=== PATIENT | male | born 1995 | race Caucasian/White ===

== ENCOUNTER 2016-11-05 17:19 | Inpatient (IN) | payer SELFPAY ==
[2016-11-05] VITALS (15 sets, daily range): BP systolic 110–133; BP diastolic 55–91; PULSE 60–99; RESP 5–16; TEMP 98; O2SAT 94–100
[~2016-11-05] VITALS: Ht 165.1 cm; Wt 57.4 kg
[2016-11-05] MEDS ORDERED: ETOMIDATE 20 MG/10 ML VIAL ONE (17:57)
[2016-11-05] MEDS ORDERED: SUCCINYLCHOLINE CHLORIDE 200 MG/10 ML VIAL ONE (17:57)
[2016-11-05] MEDS ORDERED: ETOMIDATE 20 MG/10 ML VIAL IVP ONE (18:15)
[2016-11-05] MEDS ORDERED: SODIUM CHLORIDE 0.9% FLUSH 10 ML FLUSH IVF PRN (18:15)
[2016-11-05] MEDS ORDERED: SODIUM CHLOR 0.9% 1000 ML INJ 1,000 ML IV ONE (18:15)
[2016-11-05] MEDS ORDERED: SUCCINYLCHOLINE CHLORIDE 200 MG/10 ML VIAL IVP ONE (18:15)
[2016-11-05] MEDS ORDERED: SODIUM CHLORIDE 0.9% FLUSH 5 ML FLUSH IV FLUSH PRN (18:15)
[2016-11-05] MEDS ORDERED: PROPOFOL 1000 MG/100 ML INJ 100 ML IV PRN ×2 (18:15→21:30)
--- NOTE | 2016-11-05 18:20 | PD ---
HPI Chief Complaint: Altered Mental Status Time Seen by Provider: 17:54 Travel History International Travel<30 days: No Contact w/Intl Traveler<30days: No Traveled to known affect area: No History of Present Illness HPI This patient is brought in by paramedics. This patient's roommate called them when he was found to be altered. No further history available. There was suspicion of drug overdose but nothing confirmed. Patient when I walk in the ER room is almost completely apneic. Breathing 4per minute with saturation of 77% and good waveform. He is unresponsive. Cannot provide any history or review of systems. [facility] Past Medical History Medical History: Unable to Obtain Past Surgical History Surgical History: Unable to Obtain Social History Alcohol Use: No Tobacco Use: No Substance Use: Yes (unknown) Allergies-Medications (Allergen,Severity, Reaction): Coded Allergies: No Known Allergies (Unverified , 05/07/14) Reported Meds & Prescriptions Reported Meds & Active Scripts Active Active Prescriptions or Reported Medications Unobtainable Review of Systems ROS Limitations: Clinical Condition, Altered Mental Status, Unresponsive Physical Exam Narrative GENERAL: Well-nourished, well-developed patient with very poor respiratory effort and unresponsive. SKIN: Focused skin assessment reveals no rash and nodules. Skin is Warm and dry. HEAD: Atraumatic. Normocephalic. EYES: Pupils equal and round. No scleral icterus. No injection or drainage. ENT: No nasal bleeding or discharge. Mucous membranes pink and moist. NECK: Trachea midline. No JVD. CARDIOVASCULAR: Regular rate and rhythm. No murmur appreciated. RESPIRATORY: Extremely poor respiratory effort. Respiratory rate of 4. Almost apneic. GASTROINTESTINAL: Abdomen soft, non-tender, nondistended. Hepatic and splenic margins not palpable. MUSCULOSKELETAL: No obvious deformities. No clubbing. No cyanosis. No edema. NEUROLOGICAL: Unresponsive. No gag reflex. Nonverbal. Impossible to test motor strength or sensation. PSYCHIATRIC: Unable to test mood or affect. Insight and judgment are poor. Data Data Last Documented VS Vital Signs Date Time Temp Pulse Resp B/P (MAP) Pulse Ox O2 Delivery O2 Flow Rate FiO2 11/05/16 18:13 66 14 133/63 (86) 94 Ventilator 100 11/05/16 17:55 2.00 11/05/16 17:39 98.0 Orders Orders Etomidate Inj (Amidate Inj) (11/05/16 17:57) Succinylcholine Inj (Quelicin Inj) (11/05/16 17:57) Chest, Single Ap (11/05/16 18:05) Arterial Blood Gas (Abg) (11/05/16 18:05) Ecg Monitoring (11/05/16 18:05) Iv Access Insert/Monitor (11/05/16 18:05) Ng Gastric Tube Insert/Monitor (11/05/16 18:05) Urinary Catheter Insert/Apply (11/05/16 18:05) Oximetry (11/05/16 18:05) Oxygen Administration (11/05/16 18:05) Etomidate Inj (Amidate Inj) (11/05/16 18:15) Succinylcholine Inj (Quelicin Inj) (11/05/16 18:15) Sodium Chloride 0.9% Flush (Ns Flush) (11/05/16 18:15) Restraints Non-Violent JAZIEL.Q3H (11/05/16 18:05) Propofol 1000 Mg/100 Ml Inj (Diprivan 10 (11/05/16 18:15) ^ Infusion (11/05/16 18:05) RASS (11/05/16 18:05) Neurological Rass Scale JAZIEL.Q2H (11/05/16 18:05) Sodium Chlor 0.9% 1000 Ml Inj (Ns 1000 M (11/05/16 18:15) Electrocardiogram (11/05/16 18:08) Complete Blood Count With Diff (11/05/16 18:08) Comprehensive Metabolic Panel (11/05/16 18:08) Iv Access Insert/Monitor (11/05/16 18:08) Sodium Chloride 0.9% Flush (Ns Flush) (11/05/16 18:15) Drug Screen, Random Urine (11/05/16 18:08) Alcohol (Ethanol) (11/05/16 18:08) Tylenol (Acetaminophen) (11/05/16 18:08) Salicylates (Aspirin) (11/05/16 18:08) Ct Brain W/O Iv Contrast(Rout) (11/05/16 ) Labs Laboratory Tests Test 11/05/16 18:00 MDM Medical Decision Making Medical Screen Exam Complete: Yes Emergency Medical Condition: Yes Medical Record Reviewed: Yes Differential Diagnosis Overdose, intracranial hemorrhage, polysubstance abuse Narrative Course I have reviewed the patient's electronic medical record. Patient was here once before with finger laceration 2015 When I entered the room the patient is critically ill and essentially apneic with poor saturation and very poor respiratory effort. He required emergent intubation. INTUBATION: The patient was put in optimal position for the procedure. Rapid sequence intubation was initiated by me using 20 milligrams of etomidate IV and 75 milligrams of succinylcholine IV. The patient was intubated with a 7.5 cuffed endotracheal tube. Tube placement was confirmed by visualization of the tube and balloon passing through the cords, capnometry and subsequent chest x- ray. Breath sounds were equal and well aerated bilaterally postintubation. No breath sounds over stomach. Patient tolerated procedure well. I reviewed the post intubation chest x-ray which shows good position of the tube. Lungs are clear. 2 IVs placed Hernandez and NG tube and restraints and Diprivan drip initiated Unclear what this patient took or what might of happened to him. I suspect overmedication/overdose as the cause, especially given his young age of 20. Patient wants to require admission to intensive care on the ventilator support. However, none of the labs are available and brain scan has not been done. So I can get him admitted quite yet. Case will be checked out to Dr. Harris to facilitate this process. Critical Care Narrative Aggregate critical care time was 40 minutes. Time to perform other separately billable procedures was not included in the critical care time. My time did not include minutes spent treating any other patients simultaneously or on activities that did not directly contribute to the patient's treatment. The services I provided to this patient were to treat and/or prevent clinically significant deterioration that could result in: Cardiopulmonary arrest, respiratory collapse, hypoxemic brain injury, aspiration I provided critical care services requiring my management, as noted below: Chart data review, documentation time, medication orders and management, vital sign assessments/reviewing monitor data, ordering and reviewing lab tests, ordering and interpreting/reviewing x-rays and diagnostic studies, care of the patient and discussion of the patient with the admitting physicians. Diagnosis Primary Impression: Overdose Qualified Codes: T50.904A - Poisoning by unspecified drugs, medicaments and biological substances, undetermined, initial encounter Additional Impressions: Unresponsive state Respiratory failure, acute Qualified Codes: J96.00 - Acute respiratory failure, unspecified whether with hypoxia or hypercapnia Admitting Information Admitting Physician Requests: Admit Scripts Unable to Obtain Active Prescriptions or Reported Meds Lm Baxter MD Nov 05, 2016 18:20
--- NOTE | 2016-11-05 18:30 | RADRPT ---
EXAM DATE/TIME: 11/05/2016 18:20 [facility] COMPARISON: No previous studies available for comparison. INDICATIONS : Shortness of breath MEDICAL HISTORY : unobtainable SURGICAL HISTORY : Unobtainable ENCOUNTER: Initial ACUITY: 1 day PAIN SCORE: Non-responsive. LOCATION: chest FINDINGS: No infiltrate, pleural effusion or pneumothorax. Normal heart size. Endotracheal tube tip is approximately 2.8 cm above the marcela. Nasogastric tube is coiled in the sto mach. CONCLUSION: Endotracheal tube and nasogastric tube as above. Lungs clear. Hernán Alcazar MD on November 05, 2016 at 18:27 Board Certified Radiologist. This report was verified electronically.
[2016-11-05 18:43] LABS: AUTOMATED NEUTROPHIL # 3.8 TH/MM3 (1.8-7.7); BASOPHIL % 0.6 % (0.0-2.0); EOSINOPHIL # 0.1 TH/MM3 (0-0.4); EOSINOPHIL % 1.3 % (0.0-4.0); HEMATOCRIT 43.4 % (39.0-51.0); HEMO FLAGS DIFF FINAL; LYMPH % 39.7 % (9.0-44.0); MEAN CELL VOLUME 83.7 FL (80.0-100.0); MEAN CORPUSCULAR HEMOGLOBIN 27.7 PG (27.0-34.0); MEAN CORPUSCULAR HGB CONC 33.1 % (32.0-36.0); MONO % 7.7 % (0.0-8.0); NEUT % 50.7 % (16.0-70.0); PLATELET COUNT 216 TH/MM3 (150-450); RED BLOOD COUNT 5.18 MIL/MM3 (4.50-5.90); RED CELL DISTRIBUTION WIDTH 13.3 % (11.6-17.2); WHITE BLOOD COUNT 7.5 TH/MM3 (4.0-11.0)
[2016-11-05 18:56] LABS: ANION GAP 13 MEQ/L (5-15); AST (GOT) 14 U/L (15-37); BICARBONATE 21.2 MEQ/L (21.0-32.0); BLOOD UREA NITROGEN 9 MG/DL (7-18); CHLORIDE 99 MEQ/L (98-107); GLOMERULAR FILTRATION RATE 90 ML/MIN (>89); POTASSIUM 3.7 MEQ/L (3.5-5.1); SODIUM (NA) 133 MEQ/L (136-145)
[2016-11-05 18:57] LABS: ALT (GPT) 27 U/L (12-78)
[2016-11-05 18:59] LABS: ACETAMINOPHEN LESS THAN 2.0 MCG/ML (10.0-30.0); ALCOHOL 274 MG/DL (0-5); ALKALINE PHOSPHATASE 83 U/L (45-117); TOTAL BILIRUBIN ADULT 0.7 MG/DL (0.2-1.0)
[2016-11-05] MEDS ORDERED: MIDAZOLAM HCL 5 MG/ML VIAL (1 ML) ONE (19:16)
[2016-11-05] MEDS ORDERED: MIDAZOLAM 100 MG/100 ML INJ 100 ML IV PRN (19:30)
[2016-11-05] MEDS ORDERED: MIDAZOLAM HCL 5 MG/5 ML VIAL IV PUSH ONE (19:30)
[2016-11-05 19:42] LABS: BLOOD GAS BASE EXCESS -2.7 mmol/L (-2-2); BLOOD GAS CARBOXYHEMOGLOBIN 1.2 % (0-4); BLOOD GAS HCO3 23 mmol/L (22-26); BLOOD GAS METHEMOGLOBIN 0.7 % (0-2); BLOOD GAS O2 HGB SATURATION 98 % (90-100); BLOOD GAS OXYGEN CONTENT 20.3 Vol % (12.0-20.0); BLOOD GAS PCO2 47 mmHg (38-42); BLOOD GAS PO2 332 mmHG (61-120); BLOOD GAS TOTAL HGB 14.2 G/DL (12.0-16.0); CRITICAL VALUE NO; DRAW SITE LT RADIAL; FIO2 60 %; NUMBER OF ARTERIAL PUNCTURES 1; OXYGEN DEVICE VENTILATOR; STAT YES; TEMP CORR TO 98.6; ULNAR PULSE PRESENT; VENT SETTINGS 14/400/IT1.0/5PEEP
--- NOTE | 2016-11-05 19:46 | RADRPT ---
EXAM DATE/TIME: 11/05/2016 19:32 [facility] COMPARISON: No previous studies available for comparison. INDICATIONS : Altered mental status. RADIATION DOSE: 33.03 CTDIvol (mGy) MEDICAL HISTORY : Non-responsive. SURGICAL HISTORY : Non-responsive. ENCOUNTER: Initial ACUITY: 1 day PAIN SCALE: Non-responsive LOCATION: Bilateral cranial TECHNIQUE: Multiple contiguous axial images were obtained of the head. Using automated exposure control and adj ustment of the mA and/or kV according to patient size, radiation dose was kept as low as reasonably a chievable to obtain optimal diagnostic quality images. DICOM format image data is available electro nically for review and comparison. FINDINGS: CEREBRUM: The ventricles are normal for age. No evidence of midline shift, mass lesion, hemorrhage or acute in farction. No extra-axial fluid collections are seen. POSTERIOR FOSSA: The cerebellum and brainstem are intact. The 4th ventricle is midline. The cerebellopontine angle i s unremarkable. EXTRACRANIAL: There is mucoperiosteal thickening of the visualized maxillary air cells. SKULL: The calvaria is intact. No evidence of skull fracture. CONCLUSION: No acute intracranial abnormality. Apparent sinus disease. Hernán Alcazar MD on November 05, 2016 at 19:44 Board Certified Radiologist. This report was verified electronically.
[2016-11-05] MEDS ORDERED: MIDAZOLAM 100 MG/100 ML INJ 100 ML ONE (19:47)
--- NOTE | 2016-11-05 20:02 | PD ---
Data Data Last Documented VS Vital Signs Date Time Temp Pulse Resp B/P (MAP) Pulse Ox O2 Delivery O2 Flow Rate FiO2 11/05/16 19:34 88 16 116/59 (78) 98 Ventilator 11/05/16 19:00 100 11/05/16 17:55 2.00 11/05/16 17:39 98.0 Orders Orders Etomidate Inj (Amidate Inj) (11/05/16 17:57) Succinylcholine Inj (Quelicin Inj) (11/05/16 17:57) Chest, Single Ap (11/05/16 18:05) Arterial Blood Gas (Abg) (11/05/16 18:05) Ecg Monitoring (11/05/16 18:05) Iv Access Insert/Monitor (11/05/16 18:05) Ng Gastric Tube Insert/Monitor (11/05/16 18:05) Urinary Catheter Insert/Apply (11/05/16 18:05) Oximetry (11/05/16 18:05) Oxygen Administration (11/05/16 18:05) Etomidate Inj (Amidate Inj) (11/05/16 18:15) Succinylcholine Inj (Quelicin Inj) (11/05/16 18:15) Sodium Chloride 0.9% Flush (Ns Flush) (11/05/16 18:15) Restraints Non-Violent JAZIEL.Q3H (11/05/16 18:05) Propofol 1000 Mg/100 Ml Inj (Diprivan 10 (11/05/16 18:15) ^ Infusion (11/05/16 18:05) RASS (11/05/16 18:05) Neurological Rass Scale JAZIEL.Q2H (11/05/16 18:05) Sodium Chlor 0.9% 1000 Ml Inj (Ns 1000 M (11/05/16 18:15) Electrocardiogram (11/05/16 18:08) Complete Blood Count With Diff (11/05/16 18:08) Comprehensive Metabolic Panel (11/05/16 18:08) Iv Access Insert/Monitor (11/05/16 18:08) Sodium Chloride 0.9% Flush (Ns Flush) (11/05/16 18:15) Drug Screen, Random Urine (11/05/16 18:08) Alcohol (Ethanol) (11/05/16 18:08) Tylenol (Acetaminophen) (11/05/16 18:08) Salicylates (Aspirin) (11/05/16 18:08) Ct Brain W/O Iv Contrast(Rout) (11/05/16 ) Midazolam Inj (Versed Inj) (11/05/16 19:16) Midazolam Inj (Versed Inj) (11/05/16 19:30) Midazolam 100 Mg/100 Ml Inj (Versed Inj) (11/05/16 19:30) Neurological Rass Scale Q30MX2,Q2HX4,Q4H (11/05/16 19:18) Midazolam 100 Mg/100 Ml Inj (Versed Inj) (11/05/16 19:47) Labs Laboratory Tests Test 11/05/16 16:00 11/05/16 18:00 11/05/16 19:25 White Blood Count 7.5 TH/MM3 Red Blood Count 5.18 MIL/MM3 Hemoglobin 14.3 GM/DL Hematocrit 43.4 % Mean Corpuscular Volume 83.7 FL Mean Corpuscular Hemoglobin 27.7 PG Mean Corpuscular Hemoglobin Concent 33.1 % Red Cell Distribution Width 13.3 % Platelet Count 216 TH/MM3 Mean Platelet Volume 7.7 FL Neutrophils (%) (Auto) 50.7 % Lymphocytes (%) (Auto) 39.7 % Monocytes (%) (Auto) 7.7 % Eosinophils (%) (Auto) 1.3 % Basophils (%) (Auto) 0.6 % Neutrophils # (Auto) 3.8 TH/MM3 Lymphocytes # (Auto) 3.0 TH/MM3 Monocytes # (Auto) 0.6 TH/MM3 Eosinophils # (Auto) 0.1 TH/MM3 Basophils # (Auto) 0.0 TH/MM3 CBC Comment DIFF FINAL Differential Comment Total Protein 7.3 GM/DL Alkaline Phosphatase 83 U/L Total Bilirubin 0.7 MG/DL Anion Gap 13 MEQ/L Estimat Glomerular Filtration Rate 90 ML/MIN Acetaminophen Level LESS THAN 2.0 MCG/ML Ethyl Alcohol Level 274 MG/DL Blood Gas Puncture Site LT RADIAL Blood Gas Patient Temperature 98.6 Blood Gas HCO3 23 mmol/L Blood Gas Base Excess -2.7 mmol/L Blood Gas Oxygen Saturation 98 % Arterial Blood pH 7.31 Arterial Blood Partial Pressure CO2 47 mmHg Arterial Blood Partial Pressure O2 332 mmHG Arterial Blood Oxygen Content 20.3 Vol % Arterial Blood Carboxyhemoglobin 1.2 % Arterial Blood Methemoglobin 0.7 % Blood Gas Hemoglobin 14.2 G/DL Oxygen Delivery Device VENTILATOR Blood Gas Ventilator Setting 14/400/IT1.0/5PEEP Blood Gas Inspired Oxygen 60 % [facility] Supervised Visit with RUDY: No Narrative Course Patient care assumed from Dr. Albarado at 1900. This is a 20-year-old male who presented to the emergency department by EMS for altered mental status. On arrival the patient was obtunded saturating in the 70s was intubated for oxygenation and airway protection area his labs are significant for an alcohol of 270. Urine tox still pending at this time. CT head is negative and chemistries are pending. The patient has begun to wake up sit up in the bed, given his level of alcohol intoxication and his hypoxia I think trial of extubation carries undue risk at this juncture and the patient should be remained intubated overnight for mechanical ventilation and reassessment in the morning. I'm awaiting the chemistries for admission of this patient. Diagnosis Primary Impression: Overdose Qualified Codes: T50.904A - Poisoning by unspecified drugs, medicaments and biological substances, undetermined, initial encounter Additional Impressions: Unresponsive state Respiratory failure, acute Qualified Codes: J96.00 - Acute respiratory failure, unspecified whether with hypoxia or hypercapnia Admitting Information Admitting Physician Requests: Admit Scripts Unable to Obtain Active Prescriptions or Reported Meds Condition: Christopher Wakefield MD Nov 05, 2016 20:02
--- NOTE | 2016-11-05 20:52 | EKG ---
Date Performed: 11/05/2016 Time Performed: 17:45:07 PTAGE: 20 years EKG: Sinus rhythm WITH OCCASIONAL VENTRICULAR PREMATURE COMPLEXES BORDERLINE RIGHT AXIS DEVIATION Diffuse ST elevation consistent with either injury, early repolarization or pericarditis. Clinical correlation suggested BORDERLINE ECG NO PREVIOUS TRACING DOCTOR: Vinicius Valdez Interpretating Date/Time 11/05/2016 20:52:10
--- NOTE | 2016-11-05 21:22 | HHI.HP ---
[facility] Service Critical Care Medicine Primary Care Physician Unknown Admission Diagnosis Hypoxic Respiratory Failure, Altered mental status. Diagnosis: (1) Tetrahydrocannabinol (THC) use disorder, mild, abuse Diagnosis: Principal (2) Alcohol intoxication Diagnosis: Principal (3) Acute respiratory failure Diagnosis: Principal (4) Unresponsive state Diagnosis: Principal (5) Overdose Diagnosis: Principal Chief Complaint: Unresponsive state/ Travel History International Travel<30 Days: No Contact w/Intl Traveler <30 Da: No Traveled to Known Affected Are: No History of Present Illness 20-year-old male. Date of admission 11/05/2016. Past medical history is unknown. He was found by his roommate to be in altered mental status.. No further history available. There was suspicion of drug overdose but nothing confirmed. Patient when I walk in the ER room is almost completely apneic. She is breathing 4 breaths per minute/saturations 77%. He was intubated in the ED with 20 mg etomidate and 75 mill grams succinylcholine. 7.5 ET tube use. Chest x-ray revealed no acute finding. Head CT revealed no acute findings. Toxicology screen positive for THC and alcohol level [id number]. Patient became more arousable but not following commands. Review of Systems ROS Limitations: Intubated Past Family Social History Allergies: Coded Allergies: No Known Allergies (Unverified , 05/07/14) Past Medical History Unknown Past Surgical History Unknown Reported Medications Unknown Active Ordered Medications Reviewed in EMR Family History Unknown. No family available Social History Unknown. Alcohol level positive. THC level positive. Physical Exam Vital Signs Vital Signs Date Time Temp Pulse Resp B/P (MAP) Pulse Ox O2 Delivery O2 Flow Rate FiO2 11/05/16 21:11 90 14 112/58 (76) 98 Ventilator 11/05/16 20:43 87 14 133/91 (105) 99 Ventilator 11/05/16 20:12 71 16 119/71 (87) 100 Ventilator 11/05/16 19:34 88 16 116/59 (78) 98 Ventilator 11/05/16 19:00 60 14 115/66 (82) 95 Ventilator 100 11/05/16 18:13 66 14 133/63 (86) 94 Ventilator 100 11/05/16 18:01 100 11/05/16 18:01 100 60 11/05/16 18:00 95 Ventilator 100 11/05/16 17:55 90 5 110/69 (83) 95 Nasal Cannula 2.00 11/05/16 17:39 98.0 74 16 123/66 (85) 98 Physical Exam GENERAL: 20-year-old male, critically ill currently orotracheally intubated SKIN: Warm and dry. No rash HEAD: Atraumatic. Normocephalic. EYES: Pupils equal and round about 4 mm bilaterally and reactive. No scleral icterus. No injection or drainage. ENT: No nasal bleeding or discharge. Mucous membranes pink and moist. NECK: Trachea midline. No JVD. CARDIOVASCULAR: Tachycardia, RR. S1, S2 no rhythm murmur RESPIRATORY: Clear to auscultation. Breath sounds equal bilaterally. GASTROINTESTINAL: Abdomen soft, non-tender, nondistended. Hepatic and splenic margins not palpable. MUSCULOSKELETAL: Extremities without clubbing, cyanosis, or edema. No obvious deformities. NEUROLOGICAL: Arousable on the ventilator. Moving all 4 extremity spontaneously but not to commands. Has a gag. Laboratory Laboratory Tests Test 11/05/16 16:00 11/05/16 18:00 11/05/16 19:20 11/05/16 19:25 White Blood Count 7.5 Red Blood Count 5.18 Hemoglobin 14.3 Hematocrit 43.4 Mean Corpuscular Volume 83.7 Mean Corpuscular Hemoglobin 27.7 Mean Corpuscular Hemoglobin Concent 33.1 Red Cell Distribution Width 13.3 Platelet Count 216 Mean Platelet Volume 7.7 Neutrophils (%) (Auto) 50.7 Lymphocytes (%) (Auto) 39.7 Monocytes (%) (Auto) 7.7 Eosinophils (%) (Auto) 1.3 Basophils (%) (Auto) 0.6 Neutrophils # (Auto) 3.8 Lymphocytes # (Auto) 3.0 Monocytes # (Auto) 0.6 Eosinophils # (Auto) 0.1 Basophils # (Auto) 0.0 CBC Comment DIFF FINAL Differential Comment Total Protein 7.3 Alkaline Phosphatase 83 Total Bilirubin 0.7 Anion Gap 13 Estimat Glomerular Filtration Rate 90 Salicylates Level LESS THAN 1.7 Acetaminophen Level LESS THAN 2.0 Ethyl Alcohol Level 274 Urine Opiates Screen NEG Urine Barbiturates Screen NEG Urine Amphetamines Screen NEG Urine Benzodiazepines Screen NEG Urine Cocaine Screen NEG Urine Cannabinoids Screen POS Blood Gas Puncture Site LT RADIAL Blood Gas Patient Temperature 98.6 Blood Gas HCO3 23 Blood Gas Base Excess -2.7 Blood Gas Oxygen Saturation 98 Arterial Blood pH 7.31 Arterial Blood Partial Pressure CO2 47 Arterial Blood Partial Pressure O2 332 Arterial Blood Oxygen Content 20.3 Arterial Blood Carboxyhemoglobin 1.2 Arterial Blood Methemoglobin 0.7 Blood Gas Hemoglobin 14.2 Oxygen Delivery Device VENTILATOR Blood Gas Ventilator Setting 14/400/IT1.0/5PEEP Blood Gas Inspired Oxygen 60 Test 11/05/16 20:25 Troponin I LESS THAN 0.02 Result Diagram: 11/05/16 1600 Imaging Last Impressions Chest X-Ray 11/05/16 1805 Signed Impressions: Service Date/Time: Saturday, November 05, 2016 18:20 - CONCLUSION: Endotracheal tube and nasogastric tube as above. Lungs clear. Hernán Alcazar MD Head CT 11/05/16 0000 Signed Impressions: Service Date/Time: Saturday, November 05, 2016 19:32 - CONCLUSION: No acute intracranial abnormality. Apparent sinus disease. MD Raina Colon VTE Risk Assessment Caprini VTE Risk Assessment: Mod/High Risk (score >= 2) Caprini Risk Assessment Model Point Value = 1 Point Value = 2 Point Value = 3 Point Value = 5 Age 41-60 Minor surgery BMI > 25 kg/m2 Swollen legs Varicose veins or History of unexplained or recurrent spontaneous Oral contraceptives or hormone replacement Sepsis (< 1 month) Serious lung disease, including pneumonia (< 1 month) Abnormal pulmonary function Acute myocardial infarction Congestive heart failure (< 1 month) History of inflammatory bowel disease Medical patient at bed rest Age 61-74 Arthroscopic surgery Major open surgery (> 45 min) Laparoscopic surgery (> 45 min) Malignancy Confined to bed (> 72 hours) Immobilizing plaster cast Central venous access Age >= 75 History of VTE Family history of VTE Factor V Leiden Prothrombin [id number] Lupus anticoagulant Anticardiolipin antibodies Elevated serum homocysteine Heparin-induced thrombocytopenia Other congenital or acquired thrombophilia Stroke (< 1 month) Elective arthroplasty Hip, pelvis, or leg fracture Acute spinal cord injury (< 1 month) Prophylaxis Regimen Total Risk Factor Score Risk Level Prophylaxis Regimen 0-1 Low Early ambulation 2 Moderate Order ONE of the following: *Sequential Compression Device (SCD) *Heparin 5000 units SQ BID 3-4 Higher Order ONE of the following medications: *Heparin 5000 units SQ TID *Enoxaparin/Lovenox 40 mg SQ daily (WT < 150 kg, CrCl > 30 mL/min) *Enoxaparin/Lovenox 30 mg SQ daily (WT < 150 kg, CrCl > 10-29 mL/min) *Enoxaparin/Lovenox 30 mg SQ BID (WT < 150 kg, CrCl > 30 mL/min) AND/OR *Sequential Compression Device (SCD) 5 or more Highest Order ONE of the following medications: *Heparin 5000 units SQ TID (Preferred with Epidurals) *Enoxaparin/Lovenox 40 mg SQ daily (WT < 150 kg, CrCl > 30 mL/min) *Enoxaparin/Lovenox 30 mg SQ daily (WT < 150 kg, CrCl > 10-29 mL/min) *Enoxaparin/Lovenox 30 mg SQ BID (WT < 150 kg, CrCl > 30 mL/min) AND *Sequential Compression Device (SCD) Assessment and Plan Assessment and Plan Neuro/Psych: EtOH THC Acute delirium Patient is currently on propofol/fentanyl drips for sedation/analgesia while intubated Goal of RA SS -[address] brain 11/05 revealed no acute findings Vitamin bag daily 3 days CV: Currently normal saline at 84 cc an hour Not requiring vasopressors and/or antihypertensives Resp: Acute respiratory failure secondary to AMS ACV 14/450/5/100 Ventilator bundle Duo nebs every 4 hours with albuterol nebs every 2 hours. Dyspnea Spontaneous breathing trials daily Follow-up a.m. chest x-ray GI: Patient is currently nothing by mouth NGT to LIWS Famotidine for GI prophylaxis PeriColace for bowel regimen : Hernandez catheter if indicated for accurate I's and O's in a critically ill patient Endo: Sliding-scale insulin if indicated to maintain euglycemia Renal: Creatinine still pending Monitor urine output Accurate I's and O's Heme: CBC within normal limits Recheck in a.m. ID: Monitor for infection FEN: Replace electrolytes as clinically indicated Access - Utilize peripheral IV. Central line if indicated Prophylaxis - GI - famotidine - DVT - SCD/heparin 30 minutes critical care time Discussed Condition With ED physician. Care plan discussed and all questions answered. No family available. Problem Qualifiers (1) Acute respiratory failure: Qualified Codes: J96.01 - Acute respiratory failure with hypoxia (2) Overdose: Qualified Codes: T50.904A - Poisoning by unspecified drugs, medicaments and biological substances, undetermined, initial encounter Hardy Nails MD Nov 05, 2016 21:22
[2016-11-05] MEDS ORDERED: ACETAMINOPHEN 325 MG TAB PO PRN (21:30)
[2016-11-05] MEDS ORDERED: MISCELLANEOUS NURSING INFORMATION XX SCH (21:30)
[2016-11-05] MEDS ORDERED: MAGNESIUM HYDROXIDE SUSP 30 ML CUP PO PRN (21:30)
[2016-11-05] MEDS ORDERED: LACTULOSE SYRUP 20 GM/30 ML CUP PO PRN (21:30)
[2016-11-05] MEDS ORDERED: SODIUM CHLORIDE 0.9% FLUSH 10 ML FLUSH IV FLUSH PRN (21:30)
[2016-11-05] MEDS ORDERED: RESP: ALBUTEROL 2.5 MG/3 ML NEB (PRN) INH (21:30)
[2016-11-05] MEDS ORDERED: CHLORHEXIDINE GLUCONATE 2 % 1 PACK (2 CLOTHS) TOP PRN (21:30)
[2016-11-05] MEDS ORDERED: fentaNYL DRIP 250 ML IV PRN (21:30)
[2016-11-05] MEDS ORDERED: SENNOSIDES 8.6 MG TAB PO PRN (21:30)
[2016-11-05] MEDS ORDERED: BISACODYL 10 MG SUPP RECTAL PRN (21:30)
[2016-11-05] MEDS ORDERED: fentaNYL DRIP 250 ML ONE (22:02)
[2016-11-05] MEDS: MIDAZOLAM 100 MG/100 ML INJ 100 ML IV PRN (22:22)
[2016-11-05] MEDS: SODIUM CHLOR 0.9% 1000 ML INJ 1,000 ML IV SCH (23:07)
[2016-11-05] MEDS: RESP: ALBUTEROL 2.5 MG/IPRATROPIUM 0.5 MG NEB (SCH) INH (23:22)
[2016-11-06] VITALS (15 sets, daily range): BP systolic 91–116; BP diastolic 55–68; PULSE 80–104; RESP 10–21; TEMP 98.1–99.8; O2SAT 93–100
[2016-11-06] MEDS ORDERED: MULTIVITAMIN INJ 10 ML, THIAMINE INJ 100 MG, FOLIC ACID INJ 1 MG in SODIUM CHLORID 0.9%... IV ONE ×4
[2016-11-06] MEDS ORDERED: SODIUM CHLOR 0.9% 1000 ML INJ 1,000 ML IV ONE (00:15)
[2016-11-06] MEDS: RESP: ALBUTEROL 2.5 MG/IPRATROPIUM 0.5 MG NEB (SCH) INH ×6 (02:47→23:37)
[2016-11-06] MEDS ORDERED: CHLORHEXIDINE GLUCONATE 2 % 1 PACK (2 CLOTHS) TOP SCH (04:00)
[2016-11-06 04:51] LABS: APTT (PATIENT) 27.1 SEC (24.3-30.1); PROTHROMBIN TIME - PATIENT 11.4 SEC (9.8-11.6)
[2016-11-06] MEDS: HEPARIN SODIUM - SQ 10,000 UNITS/ML VIAL SQ SCH ×3 (05:00→22:18)
[2016-11-06] MEDS: MIDAZOLAM 100 MG/100 ML INJ 100 ML IV PRN (05:00)
[2016-11-06 05:05] LABS: ALKALINE PHOSPHATASE 80 U/L (45-117); ALT (GPT) 24 U/L (12-78); ANION GAP 10 MEQ/L (5-15); AST (GOT) 18 U/L (15-37); BICARBONATE 23.7 MEQ/L (21.0-32.0); BLOOD UREA NITROGEN 7 MG/DL (7-18); CHLORIDE 112 MEQ/L (98-107); GLOMERULAR FILTRATION RATE 109 ML/MIN (>89); MAGNESIUM 1.9 MG/DL (1.5-2.5); POTASSIUM 3.5 MEQ/L (3.5-5.1); SODIUM (NA) 146 MEQ/L (136-145); TOTAL BILIRUBIN ADULT 0.6 MG/DL (0.2-1.0)
--- NOTE | 2016-11-06 07:24 | HHI.CCPN ---
Subjective Remarks/Hospital Course 20-year-old male. Date of admission 11/05/2016. Past medical history is unknown. He was found by his roommate to be in altered mental status.. No further history available. There was suspicion of drug overdose but nothing confirmed. Patient when I walk in the ER room is almost completely apneic. She is breathing 4 breaths per minute/saturations 77%. He was intubated in the ED with 20 mg etomidate and 75 mill grams succinylcholine. 7.5 ET tube use. Chest x-ray revealed no acute finding. Head CT revealed no acute findings. Toxicology screen positive for THC and alcohol level CCLXXIV. Patient became more arousable but not following commands. 11/06 Patient is sedated with Diprivan, Fentanyl, Versed and intubated. Afebrile. Objective Vital Signs Date Time Temp Pulse Resp B/P (MAP) Pulse Ox O2 Delivery O2 Flow Rate FiO2 11/06/16 06:00 83 11/06/16 04:23 98 35 11/06/16 04:00 98.3 14 91/55 (67) 11/06/16 00:08 Ventilator 11/05/16 17:55 2.00 Intake and Output 11/06/16 11/06/16 11/07/16 08:00 16:00 00:00 Intake Total 699 ml Output Total 150 ml Balance 549 ml Result Diagram: 11/05/16 1600 11/06/16 0422 Other Results Laboratory Tests Test 11/05/16 16:00 11/05/16 18:00 11/05/16 19:20 11/05/16 19:25 White Blood Count 7.5 TH/MM3 Red Blood Count 5.18 MIL/MM3 Hemoglobin 14.3 GM/DL Hematocrit 43.4 % Mean Corpuscular Volume 83.7 FL Mean Corpuscular Hemoglobin 27.7 PG Mean Corpuscular Hemoglobin Concent 33.1 % Red Cell Distribution Width 13.3 % Platelet Count 216 TH/MM3 Mean Platelet Volume 7.7 FL Neutrophils (%) (Auto) 50.7 % Lymphocytes (%) (Auto) 39.7 % Monocytes (%) (Auto) 7.7 % Eosinophils (%) (Auto) 1.3 % Basophils (%) (Auto) 0.6 % Neutrophils # (Auto) 3.8 TH/MM3 Lymphocytes # (Auto) 3.0 TH/MM3 Monocytes # (Auto) 0.6 TH/MM3 Eosinophils # (Auto) 0.1 TH/MM3 Basophils # (Auto) 0.0 TH/MM3 CBC Comment DIFF FINAL Differential Comment Total Protein 7.3 GM/DL Alkaline Phosphatase 83 U/L Total Bilirubin 0.7 MG/DL Anion Gap 13 MEQ/L Estimat Glomerular Filtration Rate 90 ML/MIN Salicylates Level LESS THAN 1.7 MG/DL Acetaminophen Level LESS THAN 2.0 MCG/ML Ethyl Alcohol Level 274 MG/DL Urine Opiates Screen NEG Urine Barbiturates Screen NEG Urine Amphetamines Screen NEG Urine Benzodiazepines Screen NEG Urine Cocaine Screen NEG Urine Cannabinoids Screen POS Blood Gas Puncture Site LT RADIAL Blood Gas Patient Temperature 98.6 Blood Gas HCO3 23 mmol/L Blood Gas Base Excess -2.7 mmol/L Blood Gas Oxygen Saturation 98 % Arterial Blood pH 7.31 Arterial Blood Partial Pressure CO2 47 mmHg Arterial Blood Partial Pressure O2 332 mmHG Arterial Blood Oxygen Content 20.3 Vol % Arterial Blood Carboxyhemoglobin 1.2 % Arterial Blood Methemoglobin 0.7 % Blood Gas Hemoglobin 14.2 G/DL Oxygen Delivery Device VENTILATOR Blood Gas Ventilator Setting 14/400/IT1.0/5PEEP Blood Gas Inspired Oxygen 60 % Test 11/05/16 20:25 11/06/16 02:30 11/06/16 04:22 Troponin I LESS THAN 0.02 NG/ML Nasal Screen MRSA (PCR) MRSA NOT DETECTED Prothrombin Time 11.4 SEC Prothromb Time International Ratio 1.0 RATIO Activated Partial Thromboplast Time 27.1 SEC Blood Urea Nitrogen 7 MG/DL Creatinine 0.88 MG/DL Random Glucose 84 MG/DL Total Protein 6.3 GM/DL Albumin 3.5 GM/DL Calcium Level 8.4 MG/DL Phosphorus Level 2.2 MG/DL Magnesium Level 1.9 MG/DL Alkaline Phosphatase 80 U/L Aspartate Amino Transf (AST/SGOT) 18 U/L Alanine Aminotransferase (ALT/SGPT) 24 U/L Total Bilirubin 0.6 MG/DL Sodium Level 146 MEQ/L Potassium Level 3.5 MEQ/L Chloride Level 112 MEQ/L Carbon Dioxide Level 23.7 MEQ/L Anion Gap 10 MEQ/L Estimat Glomerular Filtration Rate 109 ML/MIN Lactic Acid Level 2.0 mmol/L Imaging Last Impressions Chest X-Ray 11/05/16 9410 Signed Impressions: Service Date/Time: Saturday, November 05, 2016 18:20 - CONCLUSION: Endotracheal tube and nasogastric tube as above. Lungs clear. Hernán Alcazar MD Head CT 11/05/16 0000 Signed Impressions: Service Date/Time: Saturday, November 05, 2016 19:32 - CONCLUSION: No acute intracranial abnormality. Apparent sinus disease. Hernán Alcazar MD Objective Remarks GENERAL: 20-year-old male, critically ill currently orotracheally intubated SKIN: Warm and dry. No rash HEAD: Atraumatic. Normocephalic. EYES: Pupils equal and round about 4 mm bilaterally and reactive. No scleral icterus. No injection or drainage. ENT: No nasal bleeding or discharge. Mucous membranes pink and moist. NECK: Trachea midline. No JVD. CARDIOVASCULAR: Tachycardia, RR. S1, S2 no rhythm murmur RESPIRATORY: Clear to auscultation. Breath sounds equal bilaterally. GASTROINTESTINAL: Abdomen soft, non-tender, nondistended. Hepatic and splenic margins not palpable. MUSCULOSKELETAL: Extremities without clubbing, cyanosis, or edema. No obvious deformities. NEUROLOGICAL: Arousable on the ventilator. Moving all 4 extremity spontaneously but not to commands. Has a gag. A/P Assessment and Plan Neuro/Psych: EtOH THC Acute delirium Patient is currently on propofol/Versed/fentanyl drips for sedation/analgesia while intubated Goal of RA SS -[address] brain 11/05 revealed no acute findings Vitamin bag daily 3 days UDS: + cannabinoids CV: Monitor HR and BP keep MAP>65mmhg Currently normal saline at 84 cc an hour Lactic acid 2.0 Resp: Acute respiratory failure secondary to AMS ACV 14/450/5/35 Ventilator bundle Duo nebs every 4 hours with albuterol nebs every 2 hours. Dyspnea Spontaneous breathing trials daily CXR showed clear lungs. GI: Will start tube feeds today if remains intubated NGT to [facility] Famotidine for GI prophylaxis PeriColace for bowel regimen : Monitor renal function, I/O's, electrolytes replacement per protocol. Endo: Sliding-scale insulin if indicated to maintain euglycemia Heme: Monitor CBC ID: Monitor for signs of infection( Fever, WBC) panculture if spikes a fever. Access - Utilize peripheral IV. Prophylaxis - GI - famotidine - DVT - SCD/heparin Addendum: Patient is extubated on 2L oxygen. Will sign off and transfer care to [facility] Level 3 Gómez Cooper MD Nov 06, 2016 07:24
[2016-11-06] MEDS ORDERED: MAGNESIUM SULFATE INJ 2 GM in SODIUM CHLORIDE 0.9% INJ 96 ML IV PRN (07:30)
[2016-11-06] MEDS ORDERED: POTASSIUM PHOSPHATE MONOBASIC 500 MG TAB PO/TUBE PRN (07:30)
[2016-11-06] MEDS ORDERED: POTASSIUM CHLORIDE 25 MEQ EFFERVESCENT TAB PO PRN (07:30)
[2016-11-06] MEDS ORDERED: POTASSIUM PHOSPHATE MONOBASIC 500 MG TAB PO PRN (07:30)
[2016-11-06] MEDS ORDERED: POTASSIUM CHLOR 20 MEQ PREMIX 100 ML IV PRN ×2 (07:30)
[2016-11-06] MEDS ORDERED: MAGNESIUM OXIDE 400 MG TAB PO PRN (07:30)
[2016-11-06] MEDS ORDERED: POTASSIUM CHLOR 40 MEQ PREMIX 100 ML IV PRN ×2 (07:30)
[2016-11-06] MEDS ORDERED: SODIUM PHOSPHATE INJ 30 MMOL in SODIUM CHLOR 0.9% 250 ML INJ 240 ML IV PRN (07:30)
[2016-11-06] MEDS ORDERED: MAGNESIUM SULFATE INJ 4 GM in SODIUM CHLORIDE 0.9% INJ 92 ML IV PRN (07:30)
[2016-11-06] MEDS ORDERED: POTASSIUM PHOSPHATE INJ 30 MMOL in SODIUM CHLOR 0.9% 250 ML INJ 250 ML IV PRN (07:30)
[2016-11-06] MEDS ORDERED: CHLORHEXIDINE 0.12% (ORAL KIT) 15 ML CUP MT SCH (08:00)
[2016-11-06] MEDS ORDERED: MULTIVITAMIN INJ 10 ML, THIAMINE INJ 100 MG, FOLIC ACID INJ 1 MG in SODIUM CHLORID 0.9%... IV SCH (09:00)
[2016-11-06] MEDS ORDERED: SODIUM CHLORIDE 0.9% FLUSH 10 ML FLUSH IV FLUSH SCH (09:00)
[2016-11-06] MEDS ORDERED: ARTIFICIAL TEARS OPTH SOLN 15 ML BTL EACH EYE SCH (09:00)
[2016-11-06] MEDS ORDERED: DOCUSATE SODIUM 50 MG/SENNA 8.6 MG TAB PO SCH (09:00)
--- NOTE | 2016-11-06 09:18 | EKG ---
Date Performed: 11/05/2016 Time Performed: 20:16:32 PTAGE: 20 years EKG: Sinus rhythm BORDERLINE RIGHT AXIS DEVIATION ST ELEVATION CONSISTENT WITH INJURY, PERICARDITIS, OR EARLY REPOLARI ZATION ABNORMAL ECG INTERPRETATION BASED ON A DEFAULT AGE OF 40 YEARS No significant change from prio r electrocardiogram. PREVIOUS TRACING : 11/05/2016 17.45 DOCTOR: Vinicius Valdez Interpretating Date/Time 11/06/2016 09:17:38
[2016-11-06] MEDS: FAMOTIDINE 20 MG/2 ML VIAL IV PUSH SCH ×2 (10:17→22:17)
[2016-11-06] MEDS: ONDANSETRON HCL 4 MG/2 ML VIAL IV PUSH PRN ×2 (13:01→22:17)
[2016-11-06 14:10] LABS: AUTOMATED NEUTROPHIL # 10.2 TH/MM3 (1.8-7.7); BASOPHIL # 0.1 TH/MM3 (0-0.2); BASOPHIL % 0.9 % (0.0-2.0); EOSINOPHIL % 0.3 % (0.0-4.0); HEMATOCRIT 39.8 % (39.0-51.0); LYMPH % 7.2 % (9.0-44.0); LYMPHOCYTE # 0.9 TH/MM3 (1.0-4.8); MEAN CELL VOLUME 84.8 FL (80.0-100.0); MEAN CORPUSCULAR HEMOGLOBIN 27.6 PG (27.0-34.0); MEAN CORPUSCULAR HGB CONC 32.6 % (32.0-36.0); MONO % 9.1 % (0.0-8.0); NEUT % 82.5 % (16.0-70.0); PLATELET COUNT 186 TH/MM3 (150-450); RED CELL DISTRIBUTION WIDTH 13.8 % (11.6-17.2); WHITE BLOOD COUNT 12.4 TH/MM3 (4.0-11.0)
[2016-11-06 14:16] LABS: HEMO FLAGS AUTO DIFF
[2016-11-06 14:56] LABS: BANDS 2 % (0-6); NEUTROPHIL # MANUAL DIFF 10.2 TH/MM3 (1.8-7.7); POLYS (SEG NEUTROPHILS) 80 % (16-70); WBC DIFF SAMPLE 100
[2016-11-06 14:57] LABS: PLATELET ESTIMATE SMEAR NORMAL (NORMAL); PLATELET MORPHOLOGY NORMAL (NORMAL); SCAN/DIFF FINAL DIFF MANUAL
[2016-11-07] VITALS: BP 132/72; PULSE 109; PULSE 98; RESP 14; TEMP 100.4; O2SAT 96
[2016-11-07 02:00] VITALS: PULSE 109
[2016-11-07] MEDS: SODIUM CHLOR 0.9% 1000 ML INJ 1,000 ML IV SCH (02:32)
[2016-11-07 04:00] VITALS: BP 123/89; PULSE 106; RESP 26; TEMP 99; O2SAT 96
[2016-11-07] MEDS: RESP: ALBUTEROL 2.5 MG/IPRATROPIUM 0.5 MG NEB (SCH) INH (04:40)
[2016-11-07 05:00] LABS: AUTOMATED NEUTROPHIL # 7.6 TH/MM3 (1.8-7.7); BASOPHIL % 0.4 % (0.0-2.0); EOSINOPHIL # 0.1 TH/MM3 (0-0.4); EOSINOPHIL % 0.8 % (0.0-4.0); HEMATOCRIT 38.9 % (39.0-51.0); HEMO FLAGS DIFF FINAL; LYMPH % 24.4 % (9.0-44.0); LYMPHOCYTE # 2.8 TH/MM3 (1.0-4.8); MEAN CELL VOLUME 85.3 FL (80.0-100.0); MEAN CORPUSCULAR HEMOGLOBIN 27.1 PG (27.0-34.0); MEAN CORPUSCULAR HGB CONC 31.7 % (32.0-36.0); MONO % 8.5 % (0.0-8.0); NEUT % 65.9 % (16.0-70.0); PLATELET COUNT 188 TH/MM3 (150-450); RED BLOOD COUNT 4.56 MIL/MM3 (4.50-5.90); RED CELL DISTRIBUTION WIDTH 13.8 % (11.6-17.2); WHITE BLOOD COUNT 11.6 TH/MM3 (4.0-11.0)
[2016-11-07 05:27] LABS: BICARBONATE 26.9 MEQ/L (21.0-32.0); POTASSIUM 3.4 MEQ/L (3.5-5.1)
[2016-11-07 06:00] VITALS: PULSE 95
--- NOTE | 2016-11-07 09:53 | HHI.DCPOC ---
Discharge Care Plan Diagnosis: (1) Overdose (2) Alcohol intoxication (3) Tetrahydrocannabinol (THC) use disorder, mild, abuse (4) Acute respiratory failure (5) Unresponsive state Goals to Promote Your Health * To prevent worsening of your condition and complications * To maintain your health at the optimal level Directions to Meet Your Goals Take your medications as prescribed Follow your dietary instruction Follow activity as directed Keep your appointments as scheduled Take your immunizations and boosters as scheduled If your symptoms worsen call your PCP, if no PCP go to Urgent Care Center or Emergency Room Smoking is Dangerous to Your Health. Avoid second hand smoke Call the 24-hour hour crisis hotline for domestic abuse at Erinn Javier MD Nov 07, 2016 09:53
--- NOTE | 2016-11-07 09:54 | HHI.DS ---
Discharge Summary Admission Date Nov 05, 2016 at 20:15 Discharge Date: Nov 07, 2016 Admitting Diagnosis Hypoxic Respiratory Failure, Altered mental status. (1) Tetrahydrocannabinol (THC) use disorder, mild, abuse ICD Code: F12.10 - Cannabis abuse, uncomplicated Diagnosis: Principal (2) Alcohol intoxication ICD Code: F10.929 - Alcohol use, unspecified with intoxication, unspecified Diagnosis: Principal (3) Acute respiratory failure ICD Code: J96.00 - Acute respiratory failure, unspecified whether with hypoxia or hypercapnia Diagnosis: Principal (4) Unresponsive state ICD Code: R41.89 - Other symptoms and signs involving cognitive functions and awareness Diagnosis: Principal Status: Acute (5) Overdose ICD Code: T50.901A - Poisoning by unspecified drugs, medicaments and biological substances, accidental (unintentional), initial encounter Diagnosis: Principal Status: Acute Procedures Intubation and extubation Brief History - From Admission History of present illness from the admitting physician, Dr. Cooper 20-year-old male. Date of admission 11/05/2016. Past medical history is unknown. He was found by his roommate to be in altered mental status.. No further history available. There was suspicion of drug overdose but nothing confirmed. Patient when I walk in the ER room is almost completely apneic. She is breathing 4 breaths per minute/saturations 77%. He was intubated in the ED with 20 mg etomidate and 75 mill grams succinylcholine. 7.5 ET tube use. Chest x-ray revealed no acute finding. Head CT revealed no acute findings. Toxicology screen positive for THC and alcohol level CCLXXIV. Patient became more arousable but not following commands. CBC/BMP: 11/07/16 0437 11/07/16 0437 Significant Findings Laboratory Tests Test 11/05/16 16:00 11/05/16 18:00 11/05/16 19:20 11/05/16 19:25 Salicylates Level LESS THAN 1.7 MG/DL Acetaminophen Level LESS THAN 2.0 MCG/ML Ethyl Alcohol Level 274 MG/DL (0-5) Urine Cannabinoids Screen POS (NEG) Blood Gas Base Excess -2.7 mmol/L (-2-2) Arterial Blood pH 7.31 (7.380-7.420) Arterial Blood Partial Pressure CO2 47 mmHg (38-42) Arterial Blood Partial Pressure O2 332 mmHG (61-120) Arterial Blood Oxygen Content 20.3 Vol % (12.0-20.0) Test 11/05/16 20:25 11/06/16 02:30 11/06/16 04:22 11/06/16 13:40 Troponin I LESS THAN 0.02 NG/ML Total Protein 6.3 GM/DL (6.4-8.2) Calcium Level 8.4 MG/DL (8.5-10.1) Phosphorus Level 2.2 MG/DL (2.5-4.9) Sodium Level 146 MEQ/L (136-145) Chloride Level 112 MEQ/L (98-107) White Blood Count 12.4 TH/MM3 (4.0-11.0) Neutrophils (%) (Auto) 82.5 % (16.0-70.0) Lymphocytes (%) (Auto) 7.2 % (9.0-44.0) Monocytes (%) (Auto) 9.1 % (0.0-8.0) Neutrophils # (Auto) 10.2 TH/MM3 (1.8-7.7) Lymphocytes # (Auto) 0.9 TH/MM3 (1.0-4.8) Monocytes # (Auto) 1.1 TH/MM3 (0-0.9) Neutrophils % (Manual) 80 % (16-70) Neutrophils # (Manual) 10.2 TH/MM3 (1.8-7.7) Test 11/07/16 04:37 White Blood Count 11.6 TH/MM3 (4.0-11.0) Hemoglobin 12.3 GM/DL (13.0-17.0) Hematocrit 38.9 % (39.0-51.0) Mean Corpuscular Hemoglobin Concent 31.7 % (32.0-36.0) Monocytes (%) (Auto) 8.5 % (0.0-8.0) Monocytes # (Auto) 1.0 TH/MM3 (0-0.9) Blood Urea Nitrogen 5 MG/DL (7-18) Potassium Level 3.4 MEQ/L (3.5-5.1) Chloride Level 108 MEQ/L (98-107) Imaging Last Impressions Chest X-Ray 11/05/16 1805 Signed Impressions: Service Date/Time: Saturday, November 05, 2016 18:20 - CONCLUSION: Endotracheal tube and nasogastric tube as above. Lungs clear. Hernán Alcazar MD Head CT 11/05/16 0000 Signed Impressions: Service Date/Time: Saturday, November 05, 2016 19:32 - CONCLUSION: No acute intracranial abnormality. Apparent sinus disease. Hernán Alcazar MD PE at Discharge GENERAL: This is a well-nourished, well-developed patient, in no apparent distress. CARDIOVASCULAR: Normal rate and regular rhythm without murmurs, gallops, or rubs. RESPIRATORY: Good respiratory efforts. Breath sounds equal and clear to auscultation bilaterally. GASTROINTESTINAL: Abdomen soft, non-tender, non-distended. Normal active bowel sounds MUSCULOSKELETAL: Extremities without cyanosis, or edema. NEURO: Alert & Oriented x4 to person, place, time, situation. Moves all ext x4 PSYCH: Appropriate mood and affect. Pt update on day of discharge Patient reports is feeling great and back to his normal self. He wants to go home. He states he does not drink every day. He understand he had too much to drink. Hospital Course 20-year-old male admitted with respiratory failure secondary to alcohol overdose. Patient was intubated in the emergency room for respiratory failure. He was admitted to the ICU under the critical care service. He was eventually weaned off and extubated. He did not exhibit any signs of withdrawals after extubation. He is medically stable to be discharged home. The patient was extensively counseled to not use alcohol and quit using illicit drugs such as cannabinoids. Pt Condition on Discharge: Good Discharge Disposition: Discharge Home Discharge Time: <= 30 minutes Discharge Instructions DIET: Follow Instructions for: As Tolerated, No Restrictions Activities you can perform: Regular-No Restrictions Medication Profile: Unable to Obtain Active Prescriptions or Reported Meds Erinn Javier MD Nov 07, 2016 09:54
== END 2016-11-07 10:35 | disposition home or self-care (01) | DRG 917 ==
LOC: NEPE 17:19 → NEDA 20:15 → HIME 11-06 02:10
PROVIDERS: ADMIT Family Medicine; ATTEND Family Medicine
PROC: 5A1935Z Respiratory Ventilation, Less than 24 Consecutive Hours (ICD-10-PCS; principal; 2016-11-05)
PROC: 0BH17EZ Insertion of Endotracheal Airway into Trachea, Via Natural or Artificial Opening (ICD-10-PCS; 2016-11-05)
DX: T51.0X1A Toxic effect of ethanol, accidental (unintentional), initial encounter (principal); J96.01 Acute respiratory failure with hypoxia; F10.129 Alcohol abuse with intoxication, unspecified; F12.10 Cannabis abuse, uncomplicated; Y90.8 Blood alcohol level of 240 mg/100 ml or more
CPT/HCPCS: 31500; 36600; 43753; 51702; 70450; 71010; 80048; 80053; 80307; 82805; 82948; 83605; 83735; 84100; 84484; 85007; 85025; 85027; 85610; 85730; 87641; 93005; 94002; 94003; 94640; 94664; 96365; 96366; 96375; J0330; J1644; J2250; J2405; J3010; J3411; J7030; J7040